=== PATIENT | female | born 2000 | race African-American/Black ===

== ENCOUNTER 2021-01-20 12:36 | Emergency (ER) | payer OTHER ==
[~2021-01-20] VITALS: Ht 175.3 cm; Wt 75.9 kg
[2021-01-20 12:39] VITALS: TEMP 98.9
[2021-01-20 13:13] LABS: COLLECTION METHOD CLEAN CATCH
[2021-01-20 13:20] LABS: BASO % 0.4 % (0.0-2.0); EOS % 0.4 % (0-4.0); HEMATOCRIT 37.5 % (37.0-47.0); LYMPH # 2.2 (1.2-3.4); MEAN CELL VOLUME 87 fl (80.0-100.0); MEAN CORPUSCULAR HEMOGLOBIN 28 pg (27.0-31.0); MEAN CORPUSCULAR HGB CONC 32 g/dl (33.0-37.0); MEAN PLATELET VOLUME 10.2 fl (7.4-10.4); MONO # 0.5 (0.1-0.6); MONO % 10.2 % (1.7-9.3); PLATELET COUNT 274 K/mm3 (130-400); REDCELL DISTRIBUTION WIDTH-CV 12.7 % (11.5-14.5)
[2021-01-20 13:27] LABS: AMORPHOUS CRYSTAL Present /uL; MUCOUS Present /lpf; PH 7 (5-8); URINE APPEARANCE Hazy; URINE BACTERIA None Seen /hpf; URINE BILIRUBIN Negative (NEGATIVE); URINE BLOOD 3+ (NEGATIVE); URINE COLOR Yellow; URINE GLUCOSE Negative (NEGATIVE); URINE KETONE Negative (NEGATIVE); URINE LEUKOCYTE ESTERASE Negative (NEGATIVE); URINE NITRATE Negative (NEGATIVE); URINE PROTEIN(semi-quant) Negative (NEGATIVE); URINE RBC >50 /hpf; URINE UROBILINOGEN Negative (NEGATIVE)
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
[2021-01-20 15:24] VITALS: BP 119/95; PULSE 90
== END 2021-01-20 15:27 | disposition home or self-care (01) ==
LOC: COL.ER 12:36
PROVIDERS: Family Medicine
DX: F41.9 Anxiety disorder, unspecified (principal)